=== PATIENT | male | born 1975 | race Caucasian/White ===

== ENCOUNTER 2019-07-01 10:39 | Emergency (ER) | payer MEDICAID, OTHER ==
[~2019-07-01] VITALS: Ht 172.7 cm; Wt 120.9 kg
[2019-07-01] MEDS ORDERED: AMLO10TA8 PO (11:01)
--- NOTE | 2019-07-01 11:04 | NUR ---
ER PA WAS IN TO SEE PT.
[2019-07-01] MEDS ORDERED: KETOROLAC 30 MG/1 ML ONE (11:13)
[2019-07-01] MEDS ORDERED: DIAZEPAM 5 MG TABLET ONE (11:13)
[2019-07-01] MEDS ORDERED: OXYcodone IR 5MG TABLET ONE (11:13)
[2019-07-01] MEDS ORDERED: DIAZEPAM 5 MG TABLET PO ONE (11:30)
[2019-07-01] MEDS ORDERED: KETOROLAC 30 MG/1 ML IM ONE (11:30)
[2019-07-01] MEDS ORDERED: OxyconTIN ER 10 MG TAB.ER PO ONE (11:30)
[2019-07-01] MEDS ORDERED: OXYcodone IR 5MG TABLET PO ONE (11:50)
--- NOTE | 2019-07-01 11:50 | NUR ---
PT REPORTS SCIATIC PAIN DOWN TO 5/10 AFTER VALIUM & TORADOL. MEDICATED WITH OXYCODONE PER ORDERS. UNDERSTANDS POC. NO OTHER NEEDS AT THIS TIME.
[2019-07-01 12:40] VITALS: BP 161/102
--- NOTE | 2019-07-01 12:53 | NUR ---
D/C INSTRUCTIONS, MEDS & F/U APPT RV'WD WITH PT, HE VERBALIZES UNDERSTANDING. RX GIVEN X2. PT AMBULATED OUT OF ED WITHOUT DIFFICULTY, STATES FAMILY MEMBER WILL DRIVE HIM HOME.
== END 2019-07-01 12:52 | disposition home or self-care (01) ==
LOC: ED 10:57
DX: S39.012A Strain of muscle, fascia and tendon of lower back, initial encounter (principal); M54.41 Lumbago with sciatica, right side; I10 Essential (primary) hypertension; X58.XXXA Exposure to other specified factors, initial encounter; Y93.89 Activity, other specified; Y92.89 Other specified places as the place of occurrence of the external cause; Y99.8 Other external cause status
CPT/HCPCS: 96372; 99283; J1885